=== PATIENT | male | born 1945 | race African-American/Black ===

== ENCOUNTER → 2020-01-16 | Outpatient (CLI) | payer MEDICARE ==
[~2020-01-16] MED LIST: IOPAMIDOL 370 MG/ML 200 ML INFUS..BTL INJ ONE; SODIUM CHLORIDE 0.9% 50ML 50 ML ONE
[2020-01-16 16:12] LABS: BLOOD UREA NITROGEN 8 mg/dL (7-26); BUN/CREATININE RATIO 10 (6-25); CREATININE, SERUM 0.79 mg/dL (0.72-1.25); EST GLOMERULAR FILTRATION RATE > 60 ML/MIN (60-)
--- NOTE | 2020-01-16 16:59 | Diagnostic Imaging Report ---
EXAM: CT Abdomen and Pelvis WITH intravenous contrast INDICATION: Bladder neoplasm COMPARISON: None. TECHNIQUE: Abdomen and pelvis were scanned utilizing a multidetector helical scanner from the lung base to the pubic symphysis after administration of IV contrast. Coronal and sagittal reformations were obtained. Routine protocol was performed. Scan was performed during portal venous phase. IV CONTRAST: 100mL of Isovue 370 ORAL CONTRAST: None RADIATION DOSE: Total DLP: 217 mGy*cm Dose modulation, iterative reconstruction, and/or weight based adjustment of the mA/kV was utilized to reduce the radiation dose to as low as reasonably achievable. FINDINGS: LOWER THORAX: Normal. HEPATOBILIARY: No focal liver lesions. No biliary ductal dilation. Unremarkable gallbladder. SPLEEN: Mild splenomegaly to 14 cm. PANCREAS: No focal masses or ductal dilatation. ADRENALS: No adrenal nodules. KIDNEYS/URETERS: No hydronephrosis, renal calculi, or solid renal mass lesions. Moderate left hydroureter. PELVIC ORGANS/BLADDER: Infiltrative mass along the left lateral and inferior bladder measures up to 7.3 x 4.0 x 5.0 cm and demonstrates heterogeneous enhancement. The prostate measures 4.5 x 3.5 x 3.4 cm (volume estimate of 28 cc). PERITONEUM / RETROPERITONEUM: No free air or fluid. LYMPH NODES: Retroperitoneal lymphadenopathy measures up to 2.4 x 2.2 cm (image 47) and 1.9 x 1.7 cm (image 54). VESSELS: Moderate scattered atherosclerotic calcifications of the nonaneurysmal abdominal aorta and major branches. GI TRACT: Mild diverticulosis. No CT evidence of diverticulitis. No abnormal bowel wall thickening. No bowel obstruction. Normal appendix. BONES AND SOFT TISSUES: No acute osseous injury. No suspicious lytic or blastic lesions. IMPRESSION: Heterogeneously enhancing left lateral/inferior infiltrative bladder mass measures up to 7.3 x 4.0 x 5.0 cm and involves the left ureterovesical junction. Moderate associated left hydroureter without hydronephrosis. Findings concerning for bladder malignancy. Retroperitoneal lymphadenopathy, concerning for metastatic disease. No solid renal mass lesion, renal calculi, or hydronephrosis. Signed by: Janusz Ornelas MD on 01/16/2020 4:56 PM
== END ==
LOC: CT 14:14
PROVIDERS: ATTEND Urology
DX: D41.4 Neoplasm of uncertain behavior of bladder (principal)
CPT/HCPCS: 36415; 74177; 82565; 84520; Q9967

== ENCOUNTER → 2020-03-01 | Outpatient (CLI) | payer MEDICARE, OTHER ==
[~2020-03-01] MED LIST changes: +FENTANYL CITRATE/PF 100MCG/2 ML INJ ONE; +IOPAMIDOL 300MG/ML 100 ML INFUS..BTL IV ONE; -IOPAMIDOL 370 MG/ML 200 ML INFUS..BTL INJ ONE; +LEVOFLOXACIN 500MG/D5W 100ML 100 ML IV ONE; +LIDOCAINE HCL 1% LOCAL INJ 20 ML VIAL ONE; +MIDAZOLAM HCL 2 MG/2 ML VIAL ONE; +SODIUM CHLORIDE 0.9% 250ML 250 ML ONE; -SODIUM CHLORIDE 0.9% 50ML 50 ML ONE
[2020-03-01 08:29] LABS: INR 0.98; PROTHROMBIN TIME 13.6 seconds (11.9-14.5)
[2020-03-01 08:30] LABS: PARTIAL THROMBOPLASTIN TIME 28.6 seconds (23.8-35.5)
--- NOTE | 2020-03-01 11:57 | Diagnostic Imaging Report ---
PROCEDURE: Genitourinary catheter placement Procedural Personnel Attending physician(s): Janusz Ornelas MD Fellow physician(s): None Resident physician(s): None Advanced practice provider(s): None Pre-procedure diagnosis: Left bladder mass, left hydronephrosis Post-procedure diagnosis: Same Indication: Urinary obstruction Catheter(s) placed because the previous catheter(s) became dislodged within 30 days of placement (QCDR): No Additional clinical history: None Complications: No immediate complications. IMPRESSION: Left nephroureteral tube placement. Plan: Catheter to gravity drainage. PROCEDURE SUMMARY - Target organ: Left [place] kidney - Image-guided placement of genitourinary catheter(s) - Additional procedure(s): None PROCEDURE DETAILS: Pre-procedure Consent: Informed consent for the procedure including risks, benefits and alternatives was obtained and time-out was performed prior to the procedure. Preparation: The site was prepared and draped using maximal sterile barrier technique including cutaneous antisepsis. Anesthesia/sedation Level of anesthesia/sedation: Moderate sedation (conscious sedation) 1mg Versed, 50mcg Fentanyl Anesthesia/sedation administered by: Independent trained observer under attending supervision with continuous monitoring of the patient?s level of consciousness and physiologic status Total intra-service sedation time (minutes): 30 Left genitourinary catheter placement Local anesthesia was administered. A needle was advanced into the renal collecting system under ultrasound and fluoroscopy guidance. A wire was passed down the ureter into the bladder, the tract was serially dilated, and a nephroureteral tube was placed. Contrast injection was performed. Genitourinary catheter placed: 10.5Fr x 24cm EyeNetra PCNU Findings: Mild left hydroureteronephrosis External catheter securement: Non-absorbable suture Additional genitourinary system intervention Genitourinary intervention: None Location of intervention: Not applicable Device used: Not applicable Description of intervention: Not applicable Post-intervention findings: Not applicable Contrast Contrast agent: Isovue 300 Contrast volume (mL): 10 Radiation Dose Fluoroscopy time (minutes): 2.7 Reference air kerma (mGy): 14.9 Additional Details Additional description of procedure: None Equipment details: None Specimens removed: Urine sample was sent for analysis. Estimated blood loss (mL): Less than 10 Standardized report: [email or web address] Attestation Signer name: Janusz Ornelas MD I attest that I was present for the entire procedure. I reviewed the stored images and agree with the report as written. Signed by: Janusz Ornelas MD on 03/01/2020 11:54 AM
== END ==
LOC: DX 07:59
PROVIDERS: ATTEND Urology
DX: N13.30 Unspecified hydronephrosis (principal); Z11.59 Encounter for screening for other viral diseases
CPT/HCPCS: 36415; 50430; 76942; 85014; 85049; 85610; 85730; 87086; 87635; 99152; 99153; J1956; J2001; J2250; J3010; J7050; Q9967

== ENCOUNTER 2020-03-22 15:35 | Emergency (ER) | payer MEDICARE, OTHER ==
[~2020-03-22] VITALS: Ht 170.2 cm; Wt 63.5 kg
--- NOTE | 2020-03-22 15:49 | Emergency Department Note ---
History of Present Illnes History of Present Illness Chief Complaint: Genitourinary History of Present Illness This is a 74 year old male arrives to the ED at Dr. Lopez's request, patient instructed to go to the ER and be admitted. Patient denies any complaints. Patient admits to having a nephrostomy tube and indwelling Mcdonough catheter was replaced on Sunday. Patient does admit to occasional dysuria. CT scan was done given patient's history. CT concerning for possible pyelonephritis, case signed out to Dr. Hurst to f/u disposition and admiss ion vs transfer. Onset (how long ago): unknown Severity: mild Onset quality: unable to specify (PIERCE LIND DO) Past Medical/Family History Physician Review I have reviewed the patient's past medical and family history. Any updates have been documented here. (PIERCE LIND DO) Review of Systems Review of Systems Constitutional: Reports no symptoms EENTM: Reports no symptoms Cardiovascular: Reports no symptoms Respiratory: Reports no symptoms Gastrointestinal: Reports no symptoms Genitourinary: Reports as per HPI Musculoskeletal: Reports no symptoms Integumentary: Reports no symptoms Neurological: Reports no symptoms Psychological: Reports no symptoms Endocrine: Reports no symptoms Hematological/Lymphatic: Reports no symptoms Review of other systems: All other systems negative (PIERCE LIND DO) Physical Exam Related Data Allergies: Coded Allergies: No Known Allergies (Unverified , 03/22/20) Vital signs reviewed: Yes (PIERCE LIND DO) Physical Exam CONSTITUTIONAL Constitutional: Present well-developed, Present well-nourished HENT HENT: Present normocephalic, Present atraumatic, Present oropharynx clear/moist, Present nose normal HENT L/R: Present left ext ear normal, Present right ext ear normal EYES Eyes: Reports PERRL, Reports conjunctivae normal NECK Neck: Present ROM normal PULMONARY Pulmonary: Present effort normal, Present breath sounds normal CARDIOVASCULAR Cardiovascular: Present regular rhythm, Present heart sounds normal, Present c apillary refill normal, Present normal rate GASTROINTESTINAL Abdominal: Present soft, Present nontender, Present bowel sounds normal, Present other (left-sided nephrostomy tube present and draining) GENITOURINARY Genitourinary: Present exam deferred SKIN Skin: Present warm, Present dry MUSCULOSKELETAL Musculoskeletal: Present ROM normal NEUROLOGICAL Neurological: Present alert, Present oriented x 3, Present no gross motor or sensory deficits PSYCHOLOGICAL Psychological: Present mood/affect normal, Present judgement normal (PIERCE LIND, DO) Results Laboratory Lab results reviewed: Yes Laboratory comments Laboratory Tests Test 03/22/20 15:41 03/22/20 15:37 Urine Color Straw (YELLOW) Urine Clarity Hazy (CLEAR) Urine pH 7 (5 - 7) Urine Specific [place] 1.020 (1.010-1.025) Urine Protein 2+ (NEGATIVE) Urine Glucose (UA) Negative (NEGATIVE) Urine Ketones Negative (NEGATIVE) Urine Blood Large (NEGATIVE) Urine Nitrite Positive (NEGATIVE) Urine Bilirubin Negative (NEGATIVE) Urine Urobilinogen 0.2 mg/dL (0.2 - 1) Urine Leukocyte Esterase Large (NEGATIVE) Urine RBC 11-20 /HPF (0-5) Urine WBC 6-10 /HPF (0-5) Urine Epithelial Cells Rare /LPF (NONE) Urine Bacteria Many /HPF (NONE) White Blood Count 11.38 x10e3/uL (4.8-10.8) Red Blood Count 3.40 x10e6/uL (4.3-5.7) Hemoglobin 7.6 g/dL (14.0-18.0) Hematocrit 23.4 % (38.2-49.6) Mean Corpuscular Volume 68.8 fL (81-99) Mean Corpuscular Hemoglobin 22.4 pg (28-32) Mean Corpuscular Hemoglobin Concent 32.5 g/dL (31-35) Red Cell Distribution Width 20.7 % (11.7-14.4) Platelet Count 339 x10e3/uL (140-360) Neutrophils (%) (Auto) 73.2 % (38.7-80.0) Lymphocytes (%) (Auto) 15.6 % (18.0-39.1) Monocytes (%) (Auto) 8.7 % (4.4-11.3) Eosinophils (%) (Auto) 1.7 % (0.0-6.0) Basophils (%) (Auto) 0.3 % (0.0-1.0) Neutrophils # (Auto) 8.3 (2.1-6.9) Lymphocytes # (Auto) 1.8 (1.0-3.2) Monocytes # (Auto) 1.0 (0.2-0.8) Eosinophils # (Auto) 0.2 (0.0-0.4) Basophils # (Auto) 0.0 (0.0-0.1) Absolute Immature Granulocyte (auto 0.06 x10e3/uL (0-0.1) Sodium Level 137 mmol/L (136-145) Potassium Level 4.0 mmol/L (3.5-5.1) Chloride Level 105 mmol/L (98-107) Carbon Dioxide Level 23 mmol/L (22-29) Anion Gap 13.0 mmol/L (8-16) Blood Urea Nitrogen 11 mg/dL (7-26) Creatinine 1.09 mg/dL (0.72-1.25) Estimat Glomerular Filtration Rate > 60 ML/MIN (60-) BUN/Creatinine Ratio 10 (6-25) Glucose Level 114 mg/dL (74-118) Calcium Level 8.7 mg/dL (8.4-10.2) Total Bilirubin 0.7 mg/dL (0.2-1.2) Aspartate Amino Transf (AST/SGOT) 27 IU/L (5-34) Alanine Aminotransferase (ALT/SGPT) 24 IU/L (0-55) Alkaline Phosphatase 63 IU/L (40-150) Total Protein 8.1 g/dL (6.5-8.1) Albumin 2.5 g/dL (3.5-5.0) Globulin 5.6 g/dL (2.3-3.5) Albumin/Globulin Ratio 0.4 (0.8-2.0) (LELO, PIERCE, DO) Imaging Imaging results reviewed: Yes Impressions IMPRESSION: Heterogeneously enhancing left lateral/inferior infiltrative bladder mass measures up to 7.3 x 4.0 x 5.0 cm and involves the left ureterovesical junction. This is essentially unchanged. The previously seen moderate left hydroureter has resolved. Findings concerning for bladder malignancy. Left percutaneous nephrostomy tube with proximal tip coiled in the proximal left kidney collecting system and distal tip coiled outside the lumen of the urinary bladder. Questionable subtle areas of decreased attenuation scattered throughout the kidneys could be due to early pyelonephritis in the appropriate clinical context. Retroperitoneal lymphadenopathy, concerning for metastatic disease. No solid renal mass lesion, renal calculi, or hydronephrosis. (PIERCE LIND, DO) Assessment & Plan Medical Decision Making MDM 74-year-old male arrives to the ED with a Mcdonough catheter nephrostomy tube. Patient CT findings concerning for acute pyelonephritis. Patient noted to have a urinary tract infection. This may be chronic secondary to his chronic indwelling Mcdonough. Patient given 1 dose of antibiotics in the ED, patient required transfer secondary to bed capacity. (PIERCE LIND DO) MDM I SPOKE WITH DR CLIFTON(HOSPITALIST) AT [facility] ACCEPTS PT WITH DR ROSA(UROLOGY) CONSULTING. (RASHAAD HURST MD) Assessment & Plan Final Impression: (1) Acute pyelonephritis (PIERCE LIND DO) Depart Disposition: TRANS TO OTHER [facility] FAC[facility] PIERCE LIND DO Mar 22, 2020 15:49 RASHAAD HURST MD Mar 22, 2020 19:24
[2020-03-22 15:57] LABS: BASOPHILS % 0.3 % (0.0-1.0); EOSINOPHILS # (AUTO) 0.2 (0.0-0.4); EOSINOPHILS % 1.7 % (0.0-6.0); HEMATOCRIT 23.4 % (38.2-49.6); HEMOGLOBIN 7.6 g/dL (14.0-18.0); LYMPHOCYTES # (AUTO) 1.8 (1.0-3.2); LYMPHOCYTES % 15.6 % (18.0-39.1); MEAN CORPUSCULAR HEMOGLOBIN 22.4 pg (28-32); MEAN CORPUSCULAR HGB CONC 32.5 g/dL (31-35); MEAN CORPUSCULAR VOLUME 68.8 fL (81-99); MONOCYTES % 8.7 % (4.4-11.3); NEUTROPHILS # (AUTO) 8.3 (2.1-6.9); NEUTROPHILS % 73.2 % (38.7-80.0); PLATELET COUNT 339 x10e3/uL (140-360); RED CELL DISTRIBUTION WIDTH 20.7 % (11.7-14.4)
[2020-03-22 15:57] LABS: BILIRUBIN,URINE NEGATIVE (NEGATIVE); CLARITY,URINE HAZY (CLEAR); COLOR,URINE STRAW (YELLOW); KETONES,URINE NEGATIVE (NEGATIVE); LEUKOCYTE ESTERASE ,URINE LARGE (NEGATIVE); NITRITE,URINE POSITIVE (NEGATIVE); PROTEIN,URINE DIPSTICK 2+ (NEGATIVE); URINE UROBILINOGEN 0.2 mg/dL (0.2 - 1)
[2020-03-22 16:10] LABS: ALANINE AMINOTRANSFERASE 24 IU/L (0-55); ALBUMIN 2.5 g/dL (3.5-5.0); ALBUMIN/GLOBULIN RATIO 0.4 (0.8-2.0); ALKALINE PHOSPHATASE 63 IU/L (40-150); BLOOD UREA NITROGEN 11 mg/dL (7-26); BUN/CREATININE RATIO 10 (6-25); CALCIUM 8.7 mg/dL (8.4-10.2); CARBON DIOXIDE 23 mmol/L (22-29); CHLORIDE 105 mmol/L (98-107); CREATININE, SERUM 1.09 mg/dL (0.72-1.25); EST GLOMERULAR FILTRATION RATE > 60 ML/MIN (60-); GLUCOSE 114 mg/dL (74-118); SODIUM 137 mmol/L (136-145)
[2020-03-22 16:15] LABS: BACTERIA,URINE MANY /HPF; EPITHELIAL CELLS,URINE RARE /LPF
--- NOTE | 2020-03-22 17:17 | Diagnostic Imaging Report ---
EXAM: CT Abdomen and Pelvis WITH contrast INDICATION: Abdominal pain. Pelvic pain. Nephrostomy malfunction. Burning sensation with urination.. Left prostate. COMPARISON: 01/16/2020 TECHNIQUE: Abdomen and pelvis were scanned utilizing a multidetector helical scanner from the lung base to the pubic symphysis after administration of IV contrast. Coronal and sagittal reformations were obtained. Routine protocol was performed. Scan was performed when during portal venous phase. IV CONTRAST: 100 mL of Isovue 370 ORAL CONTRAST: None COMPLICATIONS: None RADIATION DOSE: Total DLP: 218 mGy*cm Estimated effective dose: (DLP x 0.015 x size factor) mSv CTDIvol has been reviewed. It is below the limits set by the Radiation Protocol Committee (RPC). Dose modulation, iterative reconstruction, and/or weight based adjustment of the mA/kV was utilized to reduce the radiation dose to as low as reasonably achievable. FINDINGS: Mcdonough catheter with distal tip within the urinary bladder. Right internal ureteral catheter with proximal tip coiled in the proximal right kidney collecting system and distal tip coiled in the lumen of the urinary bladder. Left percutaneous nephrostomy tube with proximal tip coiled in the proximal left kidney collecting system and distal tip coiled outside the lumen of the urinary bladder. LOWER THORAX: Normal. HEPATOBILIARY: No focal liver lesions. No biliary ductal dilation. Unremarkable gallbladder. SPLEEN: Mild splenomegaly to 14 cm. PANCREAS: No focal masses or ductal dilatation. ADRENALS: No adrenal nodules. KIDNEYS/URETERS: No hydronephrosis, renal calculi, or solid renal mass lesions. Previously seen moderate left hydroureter has resolved. Questionable subtle areas of decreased attenuation scattered throughout the kidneys could be due to early pyelonephritis in the appropriate clinical context. PELVIC ORGANS/BLADDER: Infiltrative mass along the left lateral and inferior bladder measures up to 7.3 x 4.0 x 5.0 cm and demonstrates heterogeneous enhancement. This is essentially unchanged. The prostate measures 4.5 x 3.5 x 3.4 cm (volume estimate of 28 cc). PERITONEUM / RETROPERITONEUM: No free air or fluid. LYMPH NODES: Retroperitoneal lymphadenopathy measures up to 2.4 x 2.2 cm and 1.9 x 1.7 cm . This is essentially unchanged. VESSELS: Moderate scattered atherosclerotic calcifications of the nonaneurysmal abdominal aorta and major branches. GI TRACT: Mild diverticulosis. No CT evidence of diverticulitis. No abnormal bowel wall thickening. No bowel obstruction. Normal appendix. BONES AND SOFT TISSUES: No acute osseous injury. No suspicious lytic or blastic lesions. IMPRESSION: Heterogeneously enhancing left lateral/inferior infiltrative bladder mass measures up to 7.3 x 4.0 x 5.0 cm and involves the left ureterovesical junction. This is essentially unchanged. The previously seen moderate left hydroureter has resolved. Findings concerning for bladder malignancy. Left percutaneous nephrostomy tube with proximal tip coiled in the proximal left kidney collecting system and distal tip coiled outside the lumen of the urinary bladder. Questionable subtle areas of decreased attenuation scattered throughout the kidneys could be due to early pyelonephritis in the appropriate clinical context. Retroperitoneal lymphadenopathy, concerning for metastatic disease. No solid renal mass lesion, renal calculi, or hydronephrosis. Signed by: Dr. Doug Yan M.D. on 03/22/2020 5:13 PM
[2020-03-22] MEDS ORDERED: SODIUM CHLORIDE 0.9% 50ML 50 ML ONE (17:34)
[2020-03-22] MEDS ORDERED: IOPAMIDOL 370 MG/ML 200 ML INFUS..BTL INJ ONE (17:35)
[2020-03-22] MEDS ORDERED: MEROPENEM 1GM 100 ML IV ONE (18:30)
--- NOTE | 2020-03-22 19:05 | NUR ---
REPORT GIVEN TO DARRION WALTER
--- NOTE | 2020-03-22 19:15 | NUR ---
per dr wynne, cancel transfer to [facility]
== END 2020-03-22 22:00 | disposition other institution (70) ==
LOC: ER 15:44
DX: N10 Acute pyelonephritis (principal); R30.0 Dysuria
CPT/HCPCS: 36415; 74177; 80053; 81001; 85025; 87086; 87186; 99283; J2185; Q9967

== ENCOUNTER → 2020-04-05 | Outpatient (CLI) | payer MEDICARE ==
[~2020-04-05] MED LIST changes: -FENTANYL CITRATE/PF 100MCG/2 ML INJ ONE; +IOPAMIDOL 300 MG/ML 15ML VIAL IT ONE; -IOPAMIDOL 300MG/ML 100 ML INFUS..BTL IV ONE; -LEVOFLOXACIN 500MG/D5W 100ML 100 ML IV ONE; -LIDOCAINE HCL 1% LOCAL INJ 20 ML VIAL ONE; -MIDAZOLAM HCL 2 MG/2 ML VIAL ONE; -SODIUM CHLORIDE 0.9% 250ML 250 ML ONE
--- NOTE | 2020-04-05 17:03 | Diagnostic Imaging Report ---
PROCEDURE: Antegrade nephrostogram and left PCN removal Procedural Personnel Attending physician(s): Janusz Ornelas MD Fellow physician(s): None Resident physician(s): None Advanced practice provider(s): None Pre-procedure diagnosis: Urinary obstruction Post-procedure diagnosis: Same Indication: Other-evaluate for nephrostomy removal. Double J stent in place. Additional clinical history: None Complications: No immediate complications. IMPRESSION: Antegrade left nephrostogram demonstrates opacification of nondilated left renal collecting system and patent flow of contrast through the left ureter via the indwelling double-J stent. Successful removal of left percutaneous nephrostomy tube. PROCEDURE SUMMARY - Target organ: Left [place] kidney - Antegrade nephrostogram(s) via the existing access - Successful removal of left nephrostomy tube - Additional procedure(s): None PROCEDURE DETAILS: Pre-procedure Consent: Informed consent for the procedure including risks, benefits and alternatives was obtained and time-out was performed prior to the procedure. Preparation: The site was prepared and draped using maximal sterile barrier technique including cutaneous antisepsis. Anesthesia/sedation Level of anesthesia/sedation: None Left genitourinary catheter exchange Outside Physical Damage Appraiser image shows left percutaneous nephrostomy tube in the renal pelvis and left and right double-J stents in place. Initial nephrostogram was performed. Pre-existing genitourinary catheter: Cook 10 [place] Findings: Opacification of nondilated left renal collecting system and patent flow of contrast through the left ureter via the indwelling double-J stent. The left nephrostomy tube was subsequently removed. Additional genitourinary system intervention Genitourinary intervention: None Location of intervention: Not applicable Device used: Not applicable Description of intervention: Not applicable Post-intervention findings: Not applicable Contrast Contrast agent: Isovue 300 Contrast volume (mL): 10 Radiation Dose Fluoroscopy time (minutes): 0.6 Reference air kerma (mGy): 4.7 Additional Details Additional description of procedure: None Equipment details: None Specimens removed: None Estimated blood loss (mL): Less than 10 Standardized report: [id number] Attestation Signer name: Janusz Ornelas MD I attest that I was present for the entire procedure. I reviewed the stored images and agree with the report as written. Signed by: Janusz Ornelas MD on 04/05/2020 5:00 PM
== END ==
LOC: DX 15:11
PROVIDERS: ATTEND Urology
DX: N13.30 Unspecified hydronephrosis (principal)
CPT/HCPCS: 50389; 74425; Q9967

== ENCOUNTER → 2020-04-16 | Day surgery (SDC) | payer MEDICARE ==
[2020-04-12 12:01] LABS: BASOPHILS % 0.5 % (0.0-1.0); EOSINOPHILS # (AUTO) 0.2 (0.0-0.4); EOSINOPHILS % 1.9 % (0.0-6.0); HEMATOCRIT 26.1 % (38.2-49.6); HEMOGLOBIN 8.4 g/dL (14.0-18.0); LYMPHOCYTES # (AUTO) 1.7 (1.0-3.2); LYMPHOCYTES % 21.3 % (18.0-39.1); MEAN CORPUSCULAR HEMOGLOBIN 21.5 pg (28-32); MEAN CORPUSCULAR HGB CONC 32.2 g/dL (31-35); MEAN CORPUSCULAR VOLUME 66.8 fL (81-99); MONOCYTES # (AUTO) 0.8 (0.2-0.8); MONOCYTES % 10.6 % (4.4-11.3); NEUTROPHILS # (AUTO) 5.2 (2.1-6.9); NEUTROPHILS % 65.2 % (38.7-80.0); PLATELET COUNT 294 x10e3/uL (140-360); RED BLOOD COUNT 3.91 x10e6/uL (4.3-5.7); RED CELL DISTRIBUTION WIDTH 22.2 % (11.7-14.4)
[2020-04-12 12:29] LABS: ALBUMIN 2.8 g/dL (3.5-5.0); ALBUMIN/GLOBULIN RATIO 0.5 (0.8-2.0); ANION GAP 13.4 mmol/L (8-16); CALCIUM 9.1 mg/dL (8.4-10.2); CREATININE, SERUM 1.44 mg/dL (0.72-1.25); POTASSIUM 4.4 mmol/L (3.5-5.1)
--- NOTE | 2020-04-12 12:56 | Diagnostic Imaging Report ---
EXAMINATION: CHEST 2 VIEWS INDICATION: PRE-OP COMPARISON: CT abdomen/pelvis 03-22-2020. FINDINGS: TUBES and LINES: None. LUNGS: Lungs are well inflated. Linear opacities in the bilateral lung bases likely subsegmental atelectasis or scarring, as seen on prior CT. There is no evidence of pneumonia or pulmonary edema. Eventration of the right hemidiaphragm. PLEURA: No pleural effusion or pneumothorax. HEART AND MEDIASTINUM: The cardiomediastinal silhouette is unremarkable. There are atherosclerotic calcifications within the aorta. BONES AND SOFT TISSUES: No acute osseous lesion. Soft tissues are unremarkable. UPPER ABDOMEN: No free air under the diaphragm. IMPRESSION: No acute thoracic abnormality. Signed by: Dr. Roz Dennis MD on 04/12/2020 12:53 PM
[~2020-04-16] MED LIST changes: +ACETAMINOPHEN/CODEINE 300MG - 30MG TAB ONE; +AMLODIPINE BESY10 MG PO; +BUPIVACAINE 0.25% 30ML SDV INJ ONE; +CEFAZOLIN SOD 1 GM VIAL ONE; +DESFLURANE 240 ML BTL INH ONE; +FENTANYL CITRATE/PF 100MCG/2 ML INJ ONE; +FLOMAX0.4 MG PO; +HEPARIN SOD (PORCINE) 5,000 UNIT/ML VIAL ONE; -IOPAMIDOL 300 MG/ML 15ML VIAL IT ONE; +LIDOCAINE HCL 2% JELLY 5 ML TUBE ONE; +LIDOCAINE HCL 2% LOCAL INJ 5 ML SDV VIAL INJ ONE; +MIDAZOLAM HCL 2 MG/2 ML VIAL ONE; +NORCO 5-325 TA1 EACH PO; +OXYBUTYNIN CHLOR5 MG PO; +PROPOFOL IV EMULSION 10 MG/ML 20 ML VIAL ONE; +SODIUM CHLORIDE 0.9% 250ML 250 ML ONE; +VITAMIN D3 PO
--- NOTE | 2020-04-16 13:56 | Operative Report ---
DATE OF PROCEDURE: 04/16/2020 SURGEON: Rafita Cortés MD PREOPERATIVE DIAGNOSIS: Bladder cancer, needing IV access for chemotherapy. POSTOPERATIVE DIAGNOSIS: Bladder cancer, needing IV access for chemotherapy. OPERATION PERFORMED: Placement of left subclavian venous access port under C-arm guidance. [employer] SCHOOL CAREGIVER: CADY Jackson. ANESTHESIA: General. COMPLICATIONS: None. ESTIMATED BLOOD LOSS: Minimal. DESCRIPTION OF PROCEDURE: With the patient lying in bed in the Trendelenburg position under good general anesthesia, the left chest and neck were prepped with Betadine solution and draped in the usual manner. A standard left subclavian venipuncture was performed. It was carried down and a guidewire was advanced without any difficulty. Using the C-arm, the tip of the guidewire was confirmed to be at the level of the superior vena cava and the left lung was fully expanded. A pocket was then created in the left anterior chest without any difficulty and the catheter was threaded to the subclavian position. The Port-A-Cath was then anchored to the anterior chest wall with interrupted sutures of 2-0 silk. The reservoir and catheter were fully heparinized and the catheter was cut to the appropriate length. The peel-away sheath was then placed over the guidewire and advanced into the central venous position. The guidewire was removed and the catheter was threaded through the peel-away sheath without any problems. The peel-away sheath was then removed and there was good blood return and the reservoir and catheter were fully heparinized. Using the C-arm, the tip of the catheter was confirmed to be at the level of the superior vena cava and the left lung was fully expanded. The wounds were then closed in layers. The subcutaneous tissue was approximated with 3-0 and 4-0 Vicryl and the skin was closed with subcuticular 5-0 Vicryl. Benzoin, Steri-Strips and dressings were applied. The sponge, lap, and needle count was correct. The patient tolerated the procedure well and returned to the recovery room in stable condition. Rafita Cortés MD JLR/MODL /[id number]
[2020-04-16 14:05] VITALS: BP 108/64
== END | disposition home or self-care (01) ==
LOC: OR 08:00
PROVIDERS: ATTEND Surgery
DX: C67.9 Malignant neoplasm of bladder, unspecified (principal); I10 Essential (primary) hypertension; R53.1 Weakness; Z01.810 Encounter for preprocedural cardiovascular examination; Z01.812 Encounter for preprocedural laboratory examination; Z01.818 Encounter for other preprocedural examination; Z11.59 Encounter for screening for other viral diseases
CPT/HCPCS: 36415; 36561; 71046; 76000; 80053; 85025; 93005; C1751; J0690; J1644; J2001 ×2; J2704; J3010; J7050; U0002; J2250